=== PATIENT | female | born 1975 | race Caucasian/White ===

== ENCOUNTER 2022-06-30 05:01 | Emergency (ER) | payer OTHER ==
[~2022-06-30] VITALS: Ht 175.2 cm; Wt 85.5 kg
[2022-06-30 05:12] LABS: ALKALINE PHOSPHATASE 79 U/L (45-117); BUN 12 mg/dl (7-24); CHLORIDE 105 mmol/L (98-107); CREATININE 0.97 mg/dL (0.55-1.02); RED BLOOD COUNT 3.99 10*6/uL (4.10-5.10); SGPT/ALT 48 U/L (12-78); SODIUM 137 mmol/L (136-145); WHITE BLOOD COUNT 6.7 10*3/uL (4.8-10.8)
[2022-06-30 05:13] LABS: EOS % 0.9 % (1.0-4.0); HEMATOCRIT 42.4 % (37.0-47.0); MEAN CELL VOLUME 106.3 fl (81.0-99.0); MEAN CORPUSCULAR HGB 36.8 pg (27.0-31.0); MEAN CORPUSCULAR HGB CONC 34.7 g/dl (33.0-37.0); MEAN PLATELET VOLUME 12.6 fl (9.6-12.3); MONO % 9.7 % (3.0-9.0); NEUT % 55.5 % (47.0-73.0); PLATELET COUNT AUTOMATED 203 10*3/uL (130-400); RED CELL DISTRI WIDTH 13.4 % (0-14.5)
[2022-06-30 05:14] LABS: BASO % 0.6 % (0.0-1.0); EOS # 0.1 10*3/uL (0.0-0.4); LYMPH # 2.2 10*3/uL (1.3-4.4); MONO # 0.7 10*3/uL (0.1-1.0); NEUT # 3.7 10*3/uL (2.3-7.9)
== END 2022-06-30 07:00 ==
LOC: ED 05:01
PROVIDERS: Internal Medicine
DX: S00.83XA Contusion of other part of head, initial encounter (principal); R55 Syncope and collapse; T50.905A Adverse effect of unspecified drugs, medicaments and biological substances, initial encounter; E83.42 Hypomagnesemia; E44.0 Moderate protein-calorie malnutrition; R79.89 Other specified abnormal findings of blood chemistry; F10.920 Alcohol use, unspecified with intoxication, uncomplicated; Y92.89 Other specified places as the place of occurrence of the external cause; W18.39XA Other fall on same level, initial encounter; Y93.89 Activity, other specified; Y99.8 Other external cause status